=== PATIENT | female | born 1960 | race Two or more races ===

== ENCOUNTER 2020-12-07 09:35 | Outpatient (CLI) | payer OTHER ==
[~2020-12-07 09:35] MED LIST: ARMOUR THYROID60 M1 PO; CRESTOR10 MG PO; CYMBALTA60 MG PO; DOXYCYCLINE HY100 M2 PO; FLEXERIL10 MG PO; MACROBID 100 M100 MG PO; ULTRACET PO; XARELTO20 MG PO; ZETIA10 MG PO; ZOLOFT100 MG PO
== END 2020-12-07 09:47 | disposition home or self-care (01) ==
LOC: RX STUDY 09:35
PROVIDERS: ATTEND Urology
DX: N81.10 Cystocele, unspecified (principal); N39.46 Mixed incontinence; N81.89 Other female genital prolapse